=== PATIENT | female | born 1935 | race Caucasian/White ===

== ENCOUNTER → 2017-09-28 16:22 | Outpatient (CLI) | payer MEDICARE, OTHER | END | disposition home or self-care (01) | LOC: D.MAMMO 09:45 | DX: Z12.31 Encounter for screening mammogram for malignant neoplasm of breast (principal) ==

== ENCOUNTER 2018-11-06 08:00 | Outpatient (CLI) | payer MEDICARE, OTHER | END 2018-11-06 09:00 | disposition home or self-care (01) | LOC: D.MAMMO 08:00 | PROVIDERS: ATTEND Internal Medicine | DX: Z12.31 Encounter for screening mammogram for malignant neoplasm of breast (principal) ==

== ENCOUNTER 2020-08-15 19:17 | Inpatient (IN) | payer MEDICARE, OTHER ==
[~2020-08-15] VITALS: Ht 162.6 cm; Wt 67.1 kg
[2020-08-15] MEDS ORDERED: UNK BP MED (19:46)
[2020-08-15] MEDS ORDERED: SYNTHROID112 MCG PO (19:46)
[2020-08-15] MEDS ORDERED: UNK CHOLESTEROL MED (19:46)
[2020-08-15 20:16] LABS: BASOPHILS 0.2 % (0-2); EOSINOPHILS 0 % (0-7); HEMOGLOBIN 14.4 g/dL (12-16); IMMATURE GRANULOCYTES 0.4 % (0-5); LYMPHOCYTE ABS# 0.68 10x3/uL (1.18-3.74); LYMPHOCYTES 12.1 % (15-50); MCH 28.4 pg (26.0-34.0); MCHC 33.5 g/dL (31.0-37.0); MCV 84.8 fL (80.0-100.0); MEAN PLATELET VOLUME 11.9 fL (7.4-10.4); NEUTROPHIL ABS# 4.22 10x3/uL (1.56-6.13); NEUTROPHILS 75.3 % (40-80); PLATELET COUNT 122 10x3/uL (130-400); RBC 5.07 10x6/uL (4.00-5.40); RDW 13.8 % (11.5-14.5); WBC 5.6 10x3/uL (4.8-10.8)
[2020-08-15 20:22] LABS: INR 1.14 (0.85-1.17); PROTIME 13.6 SECONDS (11.6-15.0)
[2020-08-15 20:23] LABS: APTT 33.9 SECONDS (22.8-39.4); CALC OSMOLALITY 278 mosm/kg (275-300); CALCIUM 8.3 mg/dL (8.5-10.1); CARBON DIOXIDE 26.3 mmol/L (21.0-32.0); CHLORIDE - SERUM 100 mmol/L (98-107); CREATININE - SERUM 1.1 mg/dL (0.6-1.3); GLUCOSE 119 mg/dL (74-106); POTASSIUM - SERUM 3.6 mmol/L (3.5-5.1); SODIUM 138 mmol/L (136-145); UREA NITROGEN 17 mg/dL (7-18); eGFR NON AFRICAN AMERICAN 50 mL/min (90-120)
[2020-08-15 20:24] VITALS: BP 132/49
[2020-08-15 20:24] LABS: D-DIMER-QUANTITATIVE 1.16 ug/mLFEU (0.20-0.54)
[2020-08-15 20:36] LABS: ALKALINE PHOSPHATASE 45 U/L (30-120); ALT (SGPT) 44 U/L (10-68); MAGNESIUM - SERUM 1.9 mg/dL (1.8-2.4); PRO BNP 269 pg/mL (0-450); PROTEIN - SERUM 7.2 g/dL (6.4-8.2); THYROID STIMULATING HORMONE 0.53 uIU/mL (0.36-3.74); TROPONIN-I < 0.017 ng/mL (0.000-0.060)
[2020-08-15] MEDS ORDERED: NORVASC10 MG PO (20:50)
--- NOTE | 2020-08-15 20:50 | NUR ---
[facility] BRENNAN [facility] - [phone]
--- NOTE | 2020-08-15 21:16 | NUR ---
PT RECVD AND SETTLED IN ROOM 17. NO C/O AT THIS TIME. SHE IS 87% ON RA. PLACED 4L OF O2 ON AND SATING 92-93%. VSS AND CALL LIGHT IN REACH. SHE STATES SHE IS JUST TIRED AND NO APPETITE.
--- NOTE | 2020-08-15 21:30 | NUR ---
report from Blake TREVINO pt up to beside commode tolerated well.
[2020-08-15 22:36] VITALS: BP 132/45
[2020-08-15 22:43] LABS: BILIRUBIN NEGATIVE (NEGATIVE); KETONE LARGE mg/dL (NEGATIVE); NITRITE NEGATIVE (NEGATIVE); UROBILINOGEN NORMAL mg/dL (< 2)
--- NOTE | 2020-08-15 23:00 | NUR ---
pt given crackers and sprite at this time.
[2020-08-16] VITALS (7 sets, daily range): BP systolic 113–137; BP diastolic 45–56; BMI 25.4
--- NOTE | 2020-08-16 | NUR ---
pt resting in strecher denies needs. pt states that she is feeling better.
--- NOTE | 2020-08-16 | NUR ---
COVID POS FROM [facility] PLACED ON CHART
--- NOTE | 2020-08-16 02:45 | NUR ---
pt placed on high flow nc. pt increased from 4 L NC to 6 L called resp for humidifer at pt request. RT at bedside.
[2020-08-16 05:54] LABS: BASOPHILS 0 % (0-2); EOSINOPHILS 0 % (0-7); HEMOGLOBIN 13.3 g/dL (12-16); IMMATURE GRANULOCYTES 0.6 % (0-5); LYMPHOCYTE ABS# 0.55 10x3/uL (1.18-3.74); LYMPHOCYTES 17.2 % (15-50); MCH 28.2 pg (26.0-34.0); MCHC 33.3 g/dL (31.0-37.0); MCV 84.9 fL (80.0-100.0); MONOCYTES 6.6 % (2-11); NEUTROPHIL ABS# 2.41 10x3/uL (1.56-6.13); NEUTROPHILS 75.6 % (40-80); PLATELET COUNT 111 10x3/uL (130-400); RBC 4.71 10x6/uL (4.00-5.40); RDW 13.8 % (11.5-14.5); WBC 3.2 10x3/uL (4.8-10.8)
[2020-08-16 06:16] LABS: ANION GAP 13.5 mmol/L (8-16); C-REACTIVE PROTEIN 7.7 mg/dL (0.0-0.9); CALCIUM 7.9 mg/dL (8.5-10.1); CARBON DIOXIDE 26.3 mmol/L (21.0-32.0); MAGNESIUM - SERUM 2.2 mg/dL (1.8-2.4); PHOSPHOROUS 4.5 mg/dL (2.5-4.9); POTASSIUM - SERUM 3.8 mmol/L (3.5-5.1)
[2020-08-16 10:13] LABS: ERYTHROCYTE SEDIMENTATION RATE 21 mm/hr (0-30)
--- NOTE | 2020-08-16 14:24 | NUR ---
PT TO FLOOR FROM ER ON CART. ASSIST TO TRANSFER. OXYGEN AT 6LHFNC. PT STATES BREATHING OK.
--- NOTE | 2020-08-16 20:00 | NUR ---
INITIAL ROUNDS AND ASSESSMENT COMPLETED. PT RESTING IN BED. IVF AT KVO TO LFA. 6L/HFNC WITH SHALLOW RESPIRATIONS/DYSPNEA WME. VERY WEAK. CALLS FOR ASSIST TO GO TO THE BATHROOM. ON COVID DROPLET ISOLATION. MED CLARIFICATION TO BE DONE TOMORROW BY CALLING HER HOME PHARMACY. CALL LIGHT IN REACH. PLAN OF CARE REVIEWED.
--- NOTE | 2020-08-16 23:00 | NUR ---
ALLL BEDTIME MEDS GIVEN. IV AVT UP AOND INFUSING TO LFA.
[2020-08-17] VITALS (7 sets, daily range): BP systolic 101–155; BP diastolic 47–70
--- NOTE | 2020-08-17 01:00 | NUR ---
CALLED TO ROOM BY TAXATION AGENT. PT UPSET BECAUSE HER IV SITE IS HURTING. ASSESSED SITE AND IT HAS INFILTRATED. REMOVED IV AND PLACED ICE BAG ON SITE. SITED NEW 22G TO RFA X 2 ATTEMPTS.
--- NOTE | 2020-08-17 05:33 | NUR ---
PT C/O LESS PAIN TO INFILTRATED IV SITE. AM MEDS GIVEN. CALL LIGHT IN REACH.
--- NOTE | 2020-08-17 05:35 | NUR ---
I have reviewed this patient and I concur with the Shift Assessment completed by the Licensed Practical Nurse today this shift.
[2020-08-17 11:49] LABS: CALCIUM 7.8 mg/dL (8.5-10.1); CARBON DIOXIDE 24.4 mmol/L (21.0-32.0); CREATININE - SERUM 0.9 mg/dL (0.6-1.3); MAGNESIUM - SERUM 2.1 mg/dL (1.8-2.4); POTASSIUM - SERUM 3.4 mmol/L (3.5-5.1)
[2020-08-17 11:52] LABS: PHOSPHOROUS 2.8 mg/dL (2.5-4.9)
[2020-08-17 12:03] LABS: BASOPHILS 0 % (0-2); EOSINOPHILS 0 % (0-7); HEMATOCRIT 38.1 % (36.0-48.0); HEMOGLOBIN 12.5 g/dL (12-16); IMMATURE GRANULOCYTES 0.5 % (0-5); LYMPHOCYTE ABS# 0.54 10x3/uL (1.18-3.74); LYMPHOCYTES 4.3 % (15-50); MCH 27.7 pg (26.0-34.0); MCHC 32.8 g/dL (31.0-37.0); MCV 84.5 fL (80.0-100.0); MEAN PLATELET VOLUME 11.6 fL (7.4-10.4); MONOCYTES 6.6 % (2-11); NEUTROPHIL ABS# 11.21 10x3/uL (1.56-6.13); NEUTROPHILS 88.6 % (40-80); RBC 4.51 10x6/uL (4.00-5.40); RDW 13.9 % (11.5-14.5)
[2020-08-17 12:04] LABS: PLATELET COUNT 167 10x3/uL (130-400); WBC 12.7 10x3/uL (4.8-10.8)
--- NOTE | 2020-08-17 15:16 | NUR ---
1 UNIT COVID PLASM STARTED. VS WNL. LINE IS PATENT.
--- NOTE | 2020-08-17 19:31 | NUR ---
REORT TAKEN AND VISITED BEDSIDE ASSISTED PT TO TOILET AT THIS TIME BED LOW AND LOCKED NO OTHER NEEDS AT THIS TIME
--- NOTE | 2020-08-18 02:02 | NUR ---
I have reviewed this patient and I concur with the Shift Assessment completed by the Licensed Practical Nurse today this shift.
[2020-08-18 06:51] LABS: BASOPHILS 0.1 % (0-2); EOSINOPHILS 0 % (0-7); HEMATOCRIT 36.2 % (36.0-48.0); HEMOGLOBIN 11.6 g/dL (12-16); IMMATURE GRANULOCYTES 0.5 % (0-5); LYMPHOCYTE ABS# 0.55 10x3/uL (1.18-3.74); MCH 27.5 pg (26.0-34.0); MCV 85.8 fL (80.0-100.0); MEAN PLATELET VOLUME 11.6 fL (7.4-10.4); MONOCYTES 7.5 % (2-11); NEUTROPHIL ABS# 7.91 10x3/uL (1.56-6.13); NEUTROPHILS 85.9 % (40-80); PLATELET COUNT 172 10x3/uL (130-400); RBC 4.22 10x6/uL (4.00-5.40); RDW 14.4 % (11.5-14.5)
[2020-08-18 06:56] LABS: WBC 9.2 10x3/uL (4.8-10.8)
[2020-08-18 07:22] LABS: ALBUMIN 2.3 g/dL (3.4-5.0); BILIRUBIN - DIRECT 0.06 mg/dL (0.00-0.30); BILIRUBIN - INDIRECT 0.13 mg/dL (0.00-1.00); BILIRUBIN - TOTAL 0.19 mg/dL (0.2-1.3); CALCIUM 7.7 mg/dL (8.5-10.1); CARBON DIOXIDE 25.3 mmol/L (21.0-32.0); CREATININE - SERUM 0.8 mg/dL (0.6-1.3); MAGNESIUM - SERUM 2.2 mg/dL (1.8-2.4); POTASSIUM - SERUM 4.3 mmol/L (3.5-5.1); PROTEIN - SERUM 5.5 g/dL (6.4-8.2)
[2020-08-18 07:23] LABS: PHOSPHOROUS 3.8 mg/dL (2.5-4.9)
[2020-08-18 08:44] VITALS: BP 124/56
[2020-08-18 13:02] VITALS: BP 126/60
--- NOTE | 2020-08-18 15:18 | NUR ---
FFP INFUSING WITHOUT ADVERSE REACTION NOTED.
[2020-08-18 16:08] VITALS: BP 128/64
[2020-08-18 21:50] VITALS: BP 139/53
[2020-08-19 01:48] VITALS: BP 153/76
[2020-08-19 04:28] VITALS: BP 146/75
--- NOTE | 2020-08-19 04:49 | NUR ---
I have reviewed this patient and I concur with the Shift Assessment completed by the Licensed Practical Nurse today this shift.
--- NOTE | 2020-08-19 05:49 | NUR ---
RESTARTED IV WITH 22 TO LEFT WRIST AND REMOVED OLD SITE CATHETER INTACT OLD SITE HAD BECOME INFILTRATED
[2020-08-19 06:25] LABS: BASOPHILS 0 % (0-2); EOSINOPHILS 0 % (0-7); HEMATOCRIT 38.6 % (36.0-48.0); HEMOGLOBIN 12.1 g/dL (12-16); IMMATURE GRANULOCYTES 1.1 % (0-5); LYMPHOCYTES 8.6 % (15-50); MCH 26.9 pg (26.0-34.0); MCHC 31.3 g/dL (31.0-37.0); MCV 85.8 fL (80.0-100.0); MEAN PLATELET VOLUME 11.2 fL (7.4-10.4); MONOCYTES 7.1 % (2-11); NEUTROPHILS 83.2 % (40-80); PLATELET COUNT 202 10x3/uL (130-400); RDW 14.6 % (11.5-14.5); WBC 8.2 10x3/uL (4.8-10.8)
[2020-08-19 06:54] LABS: ALBUMIN 2.5 g/dL (3.4-5.0); ALKALINE PHOSPHATASE 41 U/L (30-120); ALT (SGPT) 39 U/L (10-68); BILIRUBIN - DIRECT 0.07 mg/dL (0.00-0.30); BILIRUBIN - INDIRECT 0.16 mg/dL (0.00-1.00); BILIRUBIN - TOTAL 0.23 mg/dL (0.2-1.3); CALC OSMOLALITY 284 mosm/kg (275-300); CALCIUM 8.1 mg/dL (8.5-10.1); CARBON DIOXIDE 26.2 mmol/L (21.0-32.0); CHLORIDE - SERUM 108 mmol/L (98-107); CREATININE - SERUM 0.7 mg/dL (0.6-1.3); GLUCOSE 112 mg/dL (74-106); MAGNESIUM - SERUM 2.2 mg/dL (1.8-2.4); PROTEIN - SERUM 6.4 g/dL (6.4-8.2); SODIUM 142 mmol/L (136-145); UREA NITROGEN 15 mg/dL (7-18); eGFR NON AFRICAN AMERICAN 85 mL/min (90-120)
[2020-08-19 06:59] LABS: POTASSIUM - SERUM 3.6 mmol/L (3.5-5.1)
[2020-08-19 07:41] VITALS: BP 136/63
[2020-08-19 12:48] VITALS: BP 131/61
[2020-08-19 21:02] VITALS: BP 157/55
[2020-08-20 01:31] VITALS: BP 137/72
--- NOTE | 2020-08-20 05:33 | NUR ---
I have reviewed this patient and I concur with the Shift Assessment completed by the Licensed Practical Nurse today this shift.
[2020-08-20 05:45] VITALS: BP 140/68
[2020-08-20 06:24] LABS: BASOPHILS 0.1 % (0-2); EOSINOPHILS 0 % (0-7); HEMATOCRIT 37.9 % (36.0-48.0); HEMOGLOBIN 12.4 g/dL (12-16); IMMATURE GRANULOCYTES 1.6 % (0-5); LYMPHOCYTES 8.2 % (15-50); MCH 28.1 pg (26.0-34.0); MCHC 32.7 g/dL (31.0-37.0); MCV 85.9 fL (80.0-100.0); MONOCYTES 9.8 % (2-11); NEUTROPHIL ABS# 5.89 10x3/uL (1.56-6.13); NEUTROPHILS 80.3 % (40-80); PLATELET COUNT 213 10x3/uL (130-400); RBC 4.41 10x6/uL (4.00-5.40); RDW 14.4 % (11.5-14.5); WBC 7.3 10x3/uL (4.8-10.8)
[2020-08-20 06:59] LABS: ALBUMIN 2.4 g/dL (3.4-5.0); ALKALINE PHOSPHATASE 41 U/L (30-120); ALT (SGPT) 39 U/L (10-68); BILIRUBIN - DIRECT 0.06 mg/dL (0.00-0.30); BILIRUBIN - INDIRECT 0.16 mg/dL (0.00-1.00); BILIRUBIN - TOTAL 0.22 mg/dL (0.2-1.3); CALC OSMOLALITY 291 mosm/kg (275-300); CALCIUM 8.1 mg/dL (8.5-10.1); CARBON DIOXIDE 25.9 mmol/L (21.0-32.0); CHLORIDE - SERUM 110 mmol/L (98-107); CREATININE - SERUM 0.7 mg/dL (0.6-1.3); GLUCOSE 130 mg/dL (74-106); MAGNESIUM - SERUM 2.3 mg/dL (1.8-2.4); PHOSPHOROUS 3.5 mg/dL (2.5-4.9); POTASSIUM - SERUM 3.9 mmol/L (3.5-5.1); SODIUM 145 mmol/L (136-145); UREA NITROGEN 15 mg/dL (7-18); eGFR NON AFRICAN AMERICAN 85 mL/min (90-120)
[2020-08-20 07:28] VITALS: BP 144/43
--- NOTE | 2020-08-20 10:14 | NUR ---
Rehab Prescreening Consult recieved and the chart has been reviewed. Per Dr Ford's eval he states she had a positive Covid on 08/15 at [facility]. Discussed with the CM Samantha browne says she will get an order for a PCR. She is currently recieving the Covid treatment. She will also need a PT/OT eval to determine her functional needs. Jeanne Acuna RN Clinical Liaison, rehab
[2020-08-20 15:23] VITALS: BP 147/54
--- NOTE | 2020-08-20 15:59 | NUR ---
PT PLEASANT & COOPERATIVE. REQUIRES SBA TO RESTROOM. SOME INCONTINCE NOTED. CLEAN BRIEF PLACED ON CLT. SHE WILL CALL FAMILY TO BRING HER SOME PJ BOTTOMS. DENIES ANY NEEDS.
[2020-08-20 19:20] VITALS: BP 151/56
[2020-08-21 05:34] LABS: BASOPHILS 0.2 % (0-2); EOSINOPHILS 0 % (0-7); HEMATOCRIT 35.7 % (36.0-48.0); HEMOGLOBIN 11.7 g/dL (12-16); IMMATURE GRANULOCYTES 2.4 % (0-5); LYMPHOCYTE ABS# 0.58 10x3/uL (1.18-3.74); LYMPHOCYTES 8.8 % (15-50); MCHC 32.8 g/dL (31.0-37.0); MCV 85.4 fL (80.0-100.0); MEAN PLATELET VOLUME 10.6 fL (7.4-10.4); MONOCYTES 8.6 % (2-11); NEUTROPHIL ABS# 5.27 10x3/uL (1.56-6.13); PLATELET COUNT 235 10x3/uL (130-400); RBC 4.18 10x6/uL (4.00-5.40); RDW 14.3 % (11.5-14.5); WBC 6.6 10x3/uL (4.8-10.8)
[2020-08-21 05:58] LABS: ALBUMIN 2.2 g/dL (3.4-5.0); ALKALINE PHOSPHATASE 41 U/L (30-120); ALT (SGPT) 35 U/L (10-68); BILIRUBIN - DIRECT 0.06 mg/dL (0.00-0.30); BILIRUBIN - INDIRECT 0.19 mg/dL (0.00-1.00); BILIRUBIN - TOTAL 0.25 mg/dL (0.2-1.3); CALC OSMOLALITY 288 mosm/kg (275-300); CALCIUM 7.9 mg/dL (8.5-10.1); CARBON DIOXIDE 28.3 mmol/L (21.0-32.0); CHLORIDE - SERUM 110 mmol/L (98-107); CREATININE - SERUM 0.7 mg/dL (0.6-1.3); GLUCOSE 140 mg/dL (74-106); MAGNESIUM - SERUM 2.3 mg/dL (1.8-2.4); POTASSIUM - SERUM 3.6 mmol/L (3.5-5.1); PROTEIN - SERUM 5.5 g/dL (6.4-8.2); SODIUM 144 mmol/L (136-145); UREA NITROGEN 13 mg/dL (7-18); eGFR NON AFRICAN AMERICAN 85 mL/min (90-120)
[2020-08-21 08:59] VITALS: BP 141/72
--- NOTE | 2020-08-21 09:33 | MORECARE ---
CASE MANAGEMENT DISCHARGE SUMMARY PATIENT: JANN SALGADO UNIT: [id number] ADM DATE: 08/16/20 AGE: 84 : 36 SEX: F ROOM/BED: D.[facility]7 AUTHOR: JOE BROOKS PHYSICIAN: REFERRING PHYSICIAN: ETTA CASTRO MD DATE OF SERVICE: 08/21/20 Discharge Plan Patient Name: JANN SALGADO Facility: [facility]:[place] : 1935 Planned Disposition: Inpatient Rehab Anticipated Discharge Date: Discharge Date: Expected LOS: Initial Reviewer: [email or web address] Initial Review Date: 08/21/2020 Generated: 08/21/20 10:32 am DCPIA - Discharge Planning Initial Assessment Updated by [email or web address]: Josselin Baez on 08/21/20 9:29 am * Is the patient Alert and Oriented? Yes * How many steps to enter\exit or inside your home? FEW/0 * PCP Dr. Krish Mota * [facility] * Preadmission Environment Home Alone * ADLs Independent * Equipment None * List name and contact numbers for known caregivers / representatives who currently or will assist patient after discharge: Tri Gay [facility] [phone] Ashli Ortega - sister * Verbal permission to speak to the caregivers and representatives has been obtained from the patient. Yes * Community resources currently utilized None * Additional services required to return to the preadmission environment? Yes * Can the patient safely return to the preadmission environment? Yes * Has this patient been hospitalized within the prior 30 days at any hospital? No External Providers External Provider: [facility] Next Contact Date: Service Request Date: Service Type: Resolution: Reviewer: Comments: Patient Name: JANN SALGADO Page [phone] at 0933 All edits/amendments must be made on the electronic document DICTATION DATE: 08/21/20931 PARTS FABRICATOR: ROSANA 08/21/20931 RPT#: [id number] DC DATE: STATUS: ADM IN [place] [address] [place] [address] END OF REPORT
--- NOTE | 2020-08-21 09:41 | MORECARE ---
CASE MANAGEMENT DISCHARGE SUMMARY PATIENT: JANN SALGADO UNIT: [id number] ADM DATE: 08/16/20 AGE: 84 : 36 SEX: F ROOM/BED: D.2576 AUTHOR: TODD,DOC PHYSICIAN: REFERRING PHYSICIAN: ETTA CASTRO MD DATE OF SERVICE: 08/21/20 Discharge Plan Patient Name: JANN SALGADO Facility: [facility]:[place] : 1935 Planned Disposition: Inpatient Rehab Anticipated Discharge Date: Discharge Date: Expected LOS: Initial Reviewer: [id number] Initial Review Date: 08/21/2020 Generated: 08/21/20 10:40 am Comments DCP- Discharge Planning Updated by [email or web address]: Josselin Baez on 08/21/20 8:[address] Patient Name: JANN SALGADO Admission Status: ER Accout number: [id number] Admission Date: 08-16-2020 : 1935 Admission Diagnosis:COVID-19 Attending: TETA MAYS Current LOS: 5 Anticipated DC Date: Planned Disposition: Inpatient Rehab Primary Insurance: MEDICARE A & B Discharge Planning Comments: CM called patient to complete initial dc planning assessment per Covid Isolation protocol. CM educated patient on the CM role and verbal consent given by patient to complete assessment. CM verified patient's address, phone number, and emergency contact phone numbers. Patient lives at home alone. CM discussed availability of home health, rehab services, and medical equipment. Patient states that her plan was to go to her sister's home for a little while, but states she will agree to inpatient rehab and R[facility]EN for [facility] received. Clinical faxed to [facility] rehab. CM will continue to follow and will assist as needed with dc plans/needs. Bar Machine Operator: Josselin Baez DCPIA - Discharge Planning Initial Assessment Updated by [email or web address]: Josselin Baez on 08/21/20 9:29 am * Is the patient Alert and Oriented? Yes * How many steps to enter\exit or inside your home? FEW/0 * PCP Dr. Krish Mota * Pharmacy [facility] on [facility] * Preadmission Environment Home Alone * ADLs Independent * Equipment None * List name and contact numbers for known caregivers / representatives who currently or will assist patient after discharge: Tri Gay - niece - [phone] Ashli Ortega - sister * Verbal permission to speak to the caregivers and representatives has been obtained from the patient. Yes * Community resources currently utilized None * Additional services required to return to the preadmission environment? Yes * Can the patient safely return to the preadmission environment? Yes * Has this patient been hospitalized within the prior 30 days at any hospital? No Coverage Notice Reviewer: [email or web address] Wil Baez Notice Issued Date-Time: 08/21/2020 9:35 Notice Type: Patient Choice Letter Notice Delivered To: Patient Relationship to Patient: Self Chemical Processing Technician Name: Delivery Method: PHONE - Phone Polly Days: Prior Verbal Notification: Recipient Understood Notice: Yes Recipient Signature: Med Rec Note Co-signed by Attending: Coverage Notice Comment: [facility] for [facility] Last DP export: 08/21/20 8:33 a Patient Name: JANN SALGADO Page [phone] at 0941 All edits/amendments must be made on the electronic document DICTATION DATE: 08/21/20939 FUNCTIONAL TESTER: ROSANA 08/21/20939 RPT#: [id number] DC DATE: STATUS: ADM IN [facility] [address] [place] [address] END OF REPORT
[2020-08-21 12:45] VITALS: Ht 162.6 cm; Wt 67.1 kg
--- NOTE | 2020-08-21 15:06 | NUR ---
OT NOTE: PT COMPLETED SIT TO STAND WITH CGA. PT COMPLETED ADL MOB WITH CGA. PT COMPLETED KADI/DOFF SOCKS WITH SBA. [id number] THANK YOU,LAZ WALTON
[2020-08-21 15:36] VITALS: BP 161/70
--- NOTE | 2020-08-21 15:59 | MORECARE ---
CASE MANAGEMENT DISCHARGE SUMMARY PATIENT: JANN SALGADO UNIT: [id number] ADM DATE: 08/16/20 AGE: 84 : 36 SEX: F ROOM/BED: D.6718 AUTHOR: TODD,DOC PHYSICIAN: REFERRING PHYSICIAN: ETTA CASTRO MD DATE OF SERVICE: 08/21/20 Discharge Plan Patient Name: JANN SALGADO Facility: [facility]:[place] : 1935 Planned Disposition: Inpatient Rehab Anticipated Discharge Date: Discharge Date: Expected LOS: Initial Reviewer: [email or web address] Initial Review Date: 08/21/2020 Generated: 08/21/20 4:58 pm Comments DCP- Discharge Planning Updated by [email or web address]: Josselin Baez on 08/21/20 2:[address] CM spoke with Eliza concerning admission to [facility] ([facility]). Eliza states they will accept this weekend if she remains stable. Updated clinical faxed. DCP- Discharge Planning Updated by [email or web address]: Josselin Baez on 08/21/20 8:[address] Patient Name: JANN SALGADO Admission Status: ER Accout number: [id number] Admission Date: 08-16-2020 : 1935 Admission Diagnosis:COVID-19 Attending: ETTA AMYS Current LOS: 5 Anticipated DC Date: Planned Disposition: Inpatient Rehab Primary Insurance: MEDICARE A & B Discharge Planning Comments: CM called patient to complete initial dc planning assessment per Covid Isolation protocol. CM educated patient on the CM role and verbal consent given by patient to complete assessment. CM verified patient's address, phone number, and emergency contact phone numbers. Patient lives at home alone. CM discussed availability of home health, rehab services, and medical equipment. Patient states that her plan was to go to her sister's home for a little while, but states she will agree to inpatient rehab and [facility] for [facility] received. Clinical faxed to [facility] rehab. CM will continue to follow and will assist as needed with dc plans/needs. Industrial Court Magistrate: Josselin Baez DCPIA - Discharge Planning Initial Assessment Updated by [email or web address]: Josselin Baez on 08/21/20 9:29 am * Is the patient Alert and Oriented? Yes * How many steps to enter\exit or inside your home? FEW/0 * PCP Dr. Krish Mota * Pharmacy [facility] on [facility] * Preadmission Environment Home Alone * ADLs Independent * Equipment None * List name and contact numbers for known caregivers / representatives who currently or will assist patient after discharge: Tri Gay - niece - [phone] Ashli Ortega - sister * Verbal permission to speak to the caregivers and representatives has been obtained from the patient. Yes * Community resources currently utilized None * Additional services required to return to the preadmission environment? Yes * Can the patient safely return to the preadmission environment? Yes * Has this patient been hospitalized within the prior 30 days at any hospital? No Coverage Notice Reviewer: [email or web address] Wil Baez Notice Issued Date-Time: 08/21/2020 9:35 Notice Type: Patient Choice Letter Notice Delivered To: Patient Relationship to Patient: Self Senior Insight Manager Name: Delivery Method: PHONE - Phone Polly Days: Prior Verbal Notification: Recipient Understood Notice: Yes Recipient Signature: Med Rec Note Co-signed by Attending: Coverage Notice Comment: [facility] for [facility] Last DP export: 08/21/20 8:41 a Patient Name: JANN SALGADO Page [phone] at 1559 All edits/amendments must be made on the electronic document DICTATION DATE: 08/21/201558 YOUTH CARE PROFESSIONAL: ROSANA 08/21/20 155 RPT#: [id number] DC DATE: STATUS: ADM IN [facility] [address] [place] [address] END OF REPORT
[2020-08-21 19:45] VITALS: BP 140/69
[2020-08-22 05:22] VITALS: BP 175/66
[2020-08-22 07:47] VITALS: BP 143/105
[2020-08-22 08:17] LABS: BASOPHILS 0.1 % (0-2); EOSINOPHILS 0 % (0-7); HEMATOCRIT 38.5 % (36.0-48.0); HEMOGLOBIN 12.7 g/dL (12-16); LYMPHOCYTE ABS# 0.75 10x3/uL (1.18-3.74); LYMPHOCYTES 8.7 % (15-50); MCH 27.8 pg (26.0-34.0); MCV 84.2 fL (80.0-100.0); MEAN PLATELET VOLUME 10.9 fL (7.4-10.4); MONOCYTES 12.3 % (2-11); NEUTROPHIL ABS# 6.49 10x3/uL (1.56-6.13); NEUTROPHILS 74.9 % (40-80); PLATELET COUNT 276 10x3/uL (130-400); RBC 4.57 10x6/uL (4.00-5.40); RDW 14.3 % (11.5-14.5); WBC 8.7 10x3/uL (4.8-10.8)
[2020-08-22 08:41] LABS: ALBUMIN 2.5 g/dL (3.4-5.0); ALKALINE PHOSPHATASE 38 U/L (30-120); ALT (SGPT) 36 U/L (10-68); BILIRUBIN - TOTAL 0.36 mg/dL (0.2-1.3); CALC OSMOLALITY 287 mosm/kg (275-300); CALCIUM 8.5 mg/dL (8.5-10.1); CARBON DIOXIDE 26.4 mmol/L (21.0-32.0); CHLORIDE - SERUM 110 mmol/L (98-107); CREATININE - SERUM 0.7 mg/dL (0.6-1.3); GLUCOSE 105 mg/dL (74-106); MAGNESIUM - SERUM 2.1 mg/dL (1.8-2.4); POTASSIUM - SERUM 3.1 mmol/L (3.5-5.1); PROTEIN - SERUM 5.9 g/dL (6.4-8.2); SODIUM 144 mmol/L (136-145); UREA NITROGEN 14 mg/dL (7-18); eGFR NON AFRICAN AMERICAN 85 mL/min (90-120)
[2020-08-22 11:02] VITALS: BP 114/56
[2020-08-22] MEDS ORDERED: VITAMIN D325 MC1 PO (11:03)
[2020-08-22] MEDS ORDERED: FEXOFENADINE HC60 MG PO (11:03)
[2020-08-22] MEDS ORDERED: VITAMIN B-1100 M1 PO (11:03)
[2020-08-22] MEDS ORDERED: MUCINEX600 MG PO (11:03)
[2020-08-22] MEDS ORDERED: AZITHROMYCIN500 MG PO (11:03)
[2020-08-22] MEDS ORDERED: TESSALON PERLE100 MG PO (11:03)
[2020-08-22] MEDS ORDERED: OMNICEF300 MG PO (11:03)
[2020-08-22] MEDS ORDERED: DECADRON4 MG PO (11:03)
[2020-08-22] MEDS ORDERED: VITAMIN C PO (11:03)
[2020-08-22] MEDS ORDERED: SINGULAIR10 MG PO (11:03)
[2020-08-22] MEDS ORDERED: DULERA 200 MCG8.8 GM INH (11:03)
[2020-08-22] MEDS ORDERED: MELATONIN 3 MG1 TAB PO (11:03)
--- NOTE | 2020-08-22 11:26 | MORECARE ---
CASE MANAGEMENT DISCHARGE SUMMARY PATIENT: JANN SALGADO UNIT: [id number] ADM DATE: 08/16/20 AGE: 84 : 36 SEX: F ROOM/BED: D.0735 AUTHOR: JOE BROOKS PHYSICIAN: REFERRING PHYSICIAN: ETTA CASTRO MD DATE OF SERVICE: 08/22/20 Discharge Plan Patient Name: JANN SALGADO Facility: [facility]:[place] : 1935 Planned Disposition: Inpatient Rehab Anticipated Discharge Date: Discharge Date: Expected LOS: Initial Reviewer: [email or web address] Initial Review Date: 08/21/2020 Generated: 08/22/20 12:25 pm Comments DCP- Discharge Planning Updated by [email or web address]: Josselin Baez on 08/22/20 10:[address] CM spoke with Saumya at [facility] rehab. Saumya states they will accept to Dr. Paz today. Clinical faxed. Saumya will call back with a fruit or nut picker time. DCP- Discharge Planning Updated by [email or web address]: Josselin Baez on 08/21/20 2:[address] CM spoke with Eliza concerning admission to [facility] ([facility]). Eliza states they will accept this weekend if she remains stable. Updated clinical faxed. DCP- Discharge Planning Updated by [email or web address]: Josselin Baez on 08/21/20 8:[address] Patient Name: JANN SALGADO Admission Status: ER Accout number: [id number] Admission Date: 08-16-2020 : 1935 Admission Diagnosis:COVID-19 Attending: ETTA MAYS Current LOS: 5 Anticipated DC Date: Planned Disposition: Inpatient Rehab Primary Insurance: MEDICARE A & B Discharge Planning Comments: CM called patient to complete initial dc planning assessment per Covid Isolation protocol. CM educated patient on the CM role and verbal consent given by patient to complete assessment. CM verified patient's address, phone number, and emergency contact phone numbers. Patient lives at home alone. CM discussed availability of home health, rehab services, and medical equipment. Patient states that her plan was to go to her sister's home for a little while, but states she will agree to inpatient rehab and RUBEN for [facility] received. Clinical faxed to [facility] rehab. CM will continue to follow and will assist as needed with dc plans/needs. Wire Welder: Josselin Baez DCPIA - Discharge Planning Initial Assessment Updated by [id number]: Josselin Baez on 08/21/20 9:29 am * Is the patient Alert and Oriented? Yes * How many steps to enter\exit or inside your home? FEW/0 * PCP Dr. Krish Mota * Pharmacy [facility] on [facility] [address] * Preadmission Environment Home Alone * ADLs Independent * Equipment None * List name and contact numbers for known caregivers / representatives who currently or will assist patient after discharge: Tri Gay - niece - [phone] Ashlimounika Ortega - sister * Verbal permission to speak to the caregivers and representatives has been obtained from the patient. Yes * Community resources currently utilized None * Additional services required to return to the preadmission environment? Yes * Can the patient safely return to the preadmission environment? Yes * Has this patient been hospitalized within the prior 30 days at any hospital? No Coverage Notice Reviewer: [email or web address] - Josselin Baez Notice Issued Date-Time: 08/21/2020 9:35 Notice Type: Patient Choice Letter Notice Delivered To: Patient Relationship to Patient: Self Media Sales Representative Name: Delivery Method: PHONE - Phone Polly Days: Prior Verbal Notification: Recipient Understood Notice: Yes Recipient Signature: Med Rec Note Co-signed by Attending: Coverage Notice Comment: [facility] for [facility] Last DP export: 08/21/20 2:59 p Patient Name: JANN SALGADO Page [phone] at 1126 All edits/amendments must be made on the electronic document DICTATION DATE: 08/22/20 1125 AUTO BENCH MECHANIC: ROSANA 08/22/20 1125 RPT#: [id number] DC DATE: STATUS: ADM IN [facility] [address] [place] [address] END OF REPORT
[2020-08-22 15:02] VITALS: BP 124/42
--- NOTE | 2020-08-22 15:44 | MORECARE ---
CASE MANAGEMENT DISCHARGE SUMMARY PATIENT: JANN SALGADO UNIT: [id number] ADM DATE: 08/16/20 AGE: 84 : 36 SEX: F ROOM/BED: D.[facility] AUTHOR: JOE BROOKS PHYSICIAN: REFERRING PHYSICIAN: ETTA CASTRO MD DATE OF SERVICE: 08/22/20 Discharge Plan Patient Name: JANN SALGADO Facility: [facility]:[place] : 1935 Planned Disposition: Inpatient Rehab Anticipated Discharge Date: Discharge Date: Expected LOS: Initial Reviewer: [email or web address] Initial Review Date: 08/21/2020 Generated: 08/22/20 4:43 pm Comments DCP- Discharge Planning Updated by [email or web address]: Josselin Baez on 08/22/20 2:[address] Patient will be picked up between 5-5:30, report called to [phone] to room 404 at [facility] inpatient rehab. I have informed jeannette Davisemergency response coordinator. DCP- Discharge Planning Updated by [email or web address]: Josselin Baez on 08/22/20 10:[address] CM spoke with Saumya at [facility] rehab. Saumya states they will accept to Dr. Paz today. Clinical faxed. Saumya will call back with a pickling machine operator time. DCP- Discharge Planning Updated by [id number]: Josselin Baez on 08/21/20 2:[address] CM spoke with Eliza concerning admission to [facility] ([facility]). Eliza states they will accept this weekend if she remains stable. Updated clinical faxed. DCP- Discharge Planning Updated by [email or web address]: Josselin Baez on 08/21/20 8:[address] Patient Name: JANN SALGADO Admission Status: ER Accout number: [id number] Admission Date: 08-16-2020 : 1935 Admission Diagnosis:COVID-19 Attending: ETTA MAYS Current LOS: 5 Anticipated DC Date: Planned Disposition: Inpatient Rehab Primary Insurance: MEDICARE A & B Discharge Planning Comments: CM called patient to complete initial dc planning assessment per Covid Isolation protocol. CM educated patient on the CM role and verbal consent given by patient to complete assessment. CM verified patient's address, phone number, and emergency contact phone numbers. Patient lives at home alone. CM discussed availability of home health, rehab services, and medical equipment. Patient states that her plan was to go to her sister's home for a little while, but states she will agree to inpatient rehab and R[facility]EN for [facility] received. Clinical faxed to [facility] rehab. CM will continue to follow and will assist as needed with dc plans/needs. Sample Maker Original: Josselin Baez DCPIA - Discharge Planning Initial Assessment Updated by [email or web address]: Josselin Sasha on 08/21/20 9:29 am * Is the patient Alert and Oriented? Yes * How many steps to enter\exit or inside your home? FEW/0 * PCP Dr. Krish Mota * Pharmacy [facility] * Preadmission Environment Home Alone * ADLs Independent * Equipment None * List name and contact numbers for known caregivers / representatives who currently or will assist patient after discharge: Tri Gay - niece - [phone] Ashli Ortega - sister * Verbal permission to speak to the caregivers and representatives has been obtained from the patient. Yes * Community resources currently utilized None * Additional services required to return to the preadmission environment? Yes * Can the patient safely return to the preadmission environment? Yes * Has this patient been hospitalized within the prior 30 days at any hospital? No Coverage Notice Reviewer: [id number] - Josselin Sasha Notice Issued Date-Time: 08/21/2020 9:35 Notice Type: Patient Choice Letter Notice Delivered To: Patient Relationship to Patient: Self Dressmaker Garment Fitter Name: Delivery Method: PHONE - Phone Polly Days: Prior Verbal Notification: Recipient Understood Notice: Yes Recipient Signature: Med Rec Note Co-signed by Attending: Coverage Notice Comment: [facility] for [facility] Reviewer: [id number] - Landon Koenig Notice Issued Date-Time: 08/22/2020 11:00 Notice Type: IM Discharge Notice Notice Delivered To: Patient Relationship to Patient: Self Dressmaker Garment Fitter Name: Delivery Method: HAND - Hand Delivered Polly Days: Prior Verbal Notification: Recipient Understood Notice: Yes Recipient Signature: Yes Med Rec Note Co-signed by Attending: Coverage Notice Comment: Telephonically explained and Signed per current protocol. Copy given to patient with DC paperwork Last DP export: 08/22/20 10:26 a Patient Name: JANN SALGADO Page [phone] at 1544 All edits/amendments must be made on the electronic document DICTATION DATE: 08/22/201542 CLEANING VALIDATION CONSULTANT: ROSANA 08/22/201542 RPT#: [id number] DC DATE: STATUS: ADM IN [facility] [address] [place] [address] END OF REPORT
--- NOTE | 2020-08-22 15:52 | NUR ---
called report to URIEL Julian at [facility]. patient to be picked up at 1730.
--- NOTE | 2020-08-24 07:33 | MORECARE ---
CASE MANAGEMENT DISCHARGE SUMMARY PATIENT: JANN SALGADO UNIT: [id number] ADM DATE: 08/16/20 AGE: 84 : 37 SEX: F ROOM/BED: D.[facility] AUTHOR: TODD,DOC PHYSICIAN: REFERRING PHYSICIAN: ETTA CASTRO MD DATE OF SERVICE: 08/24/20 Discharge Plan Patient Name: JANN SALGADO Facility: [facility]:[place] : 1935 Planned Disposition: Inpatient Rehab Anticipated Discharge Date: Discharge Date: 08/22/2020 Expected LOS: Initial Reviewer: [id number] Initial Review Date: 08/21/2020 Generated: 08/24/20 8:32 am Comments DCP- Discharge Planning Updated by [id number]: Josselin Baez on 08/22/20 2:[address] Patient will be picked up between 5-5:30, report called to [phone] to room 404 at [facility] inpatient rehab. I have informed Susan iso coordinator. DCP- Discharge Planning Updated by [email or web address]: Josselin Baez on 08/22/20 10:[address] CM spoke with Saumya at [facility] rehab. Saumya states they will accept to Dr. Paz today. Clinical faxed. Saumya will call back with a supervisor computer operations time. DCP- Discharge Planning Updated by [email or web address]: Josselin Baez on 08/21/20 2:[address] CM spoke with Eliza concerning admission to [facility] ([facility]). Eliza states they will accept this weekend if she remains stable. Updated clinical faxed. DCP- Discharge Planning Updated by [email or web address]: Josselin Baez on 08/21/20 8:[address] Patient Name: JANN SALGADO Admission Status: ER Accout number: [id number] Admission Date: 08-16-2020 : 1935 Admission Diagnosis:COVID-19 Attending: ETTA MAYS Current LOS: 5 Anticipated DC Date: Planned Disposition: Inpatient Rehab Primary Insurance: MEDICARE A & B Discharge Planning Comments: CM called patient to complete initial dc planning assessment per Covid Isolation protocol. CM educated patient on the CM role and verbal consent given by patient to complete assessment. CM verified patient's address, phone number, and emergency contact phone numbers. Patient lives at home alone. CM discussed availability of home health, rehab services, and medical equipment. Patient states that her plan was to go to her sister's home for a little while, but states she will agree to inpatient rehab and [facility]UBEN for [facility] received. Clinical faxed to [facility] rehab. CM will continue to follow and will assist as needed with dc plans/needs. Emergency Room Nurse: Josselin Baez DCPIA - Discharge Planning Initial Assessment Updated by [id number]: Josselin Sasha on 08/21/20 9:29 am * Is the patient Alert and Oriented? Yes * How many steps to enter\exit or inside your home? FEW/0 * PCP Dr. Krish Mota * Pharmacy [facility] on [facility] * Preadmission Environment Home Alone * ADLs Independent * Equipment None * List name and contact numbers for known caregivers / representatives who currently or will assist patient after discharge: Tri Gay - niece - [phone] Ashli Ortega - sister * Verbal permission to speak to the caregivers and representatives has been obtained from the patient. Yes * Community resources currently utilized None * Additional services required to return to the preadmission environment? Yes * Can the patient safely return to the preadmission environment? Yes * Has this patient been hospitalized within the prior 30 days at any hospital? No Coverage Notice Reviewer: [email or web address] - Josselin Sasha Notice Issued Date-Time: 08/21/2020 9:35 Notice Type: Patient Choice Letter Notice Delivered To: Patient Relationship to Patient: Self Dial Buffer Name: Delivery Method: PHONE - Phone Polly Days: Prior Verbal Notification: Recipient Understood Notice: Yes Recipient Signature: Med Rec Note Co-signed by Attending: Coverage Notice Comment: [facility] for [facility] Reviewer: [id number] - Landon Koenig Notice Issued Date-Time: 08/22/2020 11:00 Notice Type: IM Discharge Notice Notice Delivered To: Patient Relationship to Patient: Self Dial Buffer Name: Delivery Method: HAND - Hand Delivered Polly Days: Prior Verbal Notification: Recipient Understood Notice: Yes Recipient Signature: Yes Med Rec Note Co-signed by Attending: Coverage Notice Comment: Telephonically explained and Signed per current protocol. Copy given to patient with DC paperwork Last DP export: 08/22/20 2:43 p Patient Name: JANN SALGADO Page [id number] at 0733 All edits/amendments must be made on the electronic document DICTATION DATE: 08/24/20731 SLAG MIXER: ROSANA 08/24/20731 RPT#: [id number] DC DATE:08/22/20 STATUS: DIS IN [facility] [address] [place] [address] END OF REPORT
== END 2020-08-22 19:41 | DRG 177 ==
LOC: D.ER 19:17 → D.M2 08-16 05:05 → D.EDHOLD 08-16 05:05 → D.M2 08-16 13:08
PROVIDERS: Family Medicine; Internal Medicine Pulmonary Disease; ADMIT Family Medicine; ATTEND Family Medicine
PROC: XW033E5 Introduction of Remdesivir Anti-infective into Peripheral Vein, Percutaneous Approach, New Technology Group 5 (ICD-10-PCS; principal; 2020-08-17)
PROC: XW13325 Transfusion of Convalescent Plasma (Nonautologous) into Peripheral Vein, Percutaneous Approach, New Technology Group 5 (ICD-10-PCS; 2020-08-17)
DX: U07.1 COVID-19 (principal); J96.01 Acute respiratory failure with hypoxia; J12.82 Pneumonia due to coronavirus disease 2019; I10 Essential (primary) hypertension; E78.5 Hyperlipidemia, unspecified; E03.9 Hypothyroidism, unspecified; D72.819 Decreased white blood cell count, unspecified; D69.6 Thrombocytopenia, unspecified; R00.0 Tachycardia, unspecified; R74.01 Elevation of levels of liver transaminase levels; K44.9 Diaphragmatic hernia without obstruction or gangrene